=== PATIENT | male | born 1935 | race Caucasian/White ===

== ENCOUNTER 2017-02-26 07:01 | Day surgery (SDC) | payer BC ==
--- NOTE | ~2017-02-26 | EGD ---
EGD REPORT [facility] [address] [address] NAME: CHAS CISNEROS : 39 STATUS : REG [facility]#: [id number] AGE: 82 ADM/REG DATE : 02/26/17 MR#: [id number] REPORT SERV DATE: 02/26/17 DICTATED BY: ASIA HENDRICKSON DATE: 02/26/17 REPORT STATUS : Draft TRANSCRIBED BY: [facility] DATE: 02/26/17 End[facility] Center Patient Name: Chas Cisneros Date of : 1935 Attending MD: ASIA HENDRICKSON MD Procedure Date No Time: 02/26/2017 Procedure: Colonoscopy Indications: High risk colon cancer surveillance: Personal history of colonic polyps Referring MD: ELKIN SUERO MD Medicines: as per anesthesia Complications: No immediate complications. Procedure: Pre-Anesthesia Assessment: - ASA Grade Assessment: II - A patient with mild systemic disease. After I obtained informed consent, the scope was passed under direct vision. Throughout the procedure, the patient's blood pressure, pulse, and oxygen saturations were monitored continuously. The [facility] [id number] was introduced through the anus and advanced to the cecum, identified by appendiceal orifice and ileocecal valve. The colonoscopy was performed without difficulty. The patient tolerated the procedure. The quality of the bowel preparation was adequate to identify polyps. Findings: The perianal and digital rectal examinations were normal. Multiple small and large-mouthed diverticula were found in the sigmoid colon and in the descending colon. Internal hemorrhoids were found during endoscopy and were mild. Impression: - Diverticulosis in the sigmoid colon and in the descending colon. - Internal hemorrhoids. Recommendation: - Continue present medications. Procedure Code(s): --- Professional --- 21014, Colonoscopy, flexible, proximal to splenic flexure; diagnostic, with or without collection of specimen(s) by brushing or washing, with or without colon decompression (separate procedure) Diagnosis Code(s): --- Professional --- K64.8, Other hemorrhoids EGD REPORT [address] [place]. [address] NAME: CHAS CISNEROS : 39 STATUS : REG [facility]#: [id number] AGE: 82 ADM/REG DATE : 02/26/17 MR#: [id number] REPORT SERV DATE: 02/26/17 DICTATED BY: ASIA HENDRICKSON. DATE: 02/26/17 REPORT STATUS : Draft TRANSCRIBED BY: [employer] DATE: 02/26/17 K57.30, Diverticulosis of large intestine without perforation or abscess without bleeding Z86.010, Personal history of colonic polyps CPT copyright 2013 [employer]. All rights reserved. The codes documented in this report are preliminary and upon director of social media marketing review may be revised to meet current compliance requirements. ASIA HENDRICKSON MD 02/26/2017 9:34 AM This report has been signed electronically. Number of Addenda: 0 Note Initiated On: 02/26/2017 9:08 AM Scope Withdrawal Time 0 hours 9 minutes [address] [place] [id number]
[~2017-02-26 07:01] MED LIST: ACET500CAP PO; ASAB PO; BETAGAN OP; HYZAAR 100/25 T1 TAB PO; LEVOBUNOLOL OPH; LORTAB 5 PO; MOBIC7.5 PO; MULTIPLE VIT PO; PROSCAR5 PO; TRAVATAN OPH; TRUSOPT2 % OPH
== END 2017-02-26 23:59 | disposition home or self-care (01) ==
LOC: DMU 07:01
PROVIDERS: Internal Medicine Gastroenterology
PROC: 0DJD8ZZ Inspection of Lower Intestinal Tract, Via Natural or Artificial Opening Endoscopic (ICD-10-PCS; principal; 2017-02-26 08:30)
DX: Z12.11 Encounter for screening for malignant neoplasm of colon (principal); K57.30 Diverticulosis of large intestine without perforation or abscess without bleeding; K64.8 Other hemorrhoids; I10 Essential (primary) hypertension; N40.0 Benign prostatic hyperplasia without lower urinary tract symptoms; H40.9 Unspecified glaucoma; H91.90 Unspecified hearing loss, unspecified ear; M19.90 Unspecified osteoarthritis, unspecified site; Z88.2 Allergy status to sulfonamides; Z86.010 Personal history of colon polyps; Z87.891 Personal history of nicotine dependence; Z96.1 Presence of intraocular lens; Z90.89 Acquired absence of other organs; Z90.49 Acquired absence of other specified parts of digestive tract; Z79.82 Long term (current) use of aspirin; Z79.1 Long term (current) use of non-steroidal anti-inflammatories (NSAID); Z79.899 Other long term (current) drug therapy; Z98.890 Other specified postprocedural states